=== PATIENT | male | born 1965 | race Caucasian/White ===

== ENCOUNTER → 2016-08-04 | Outpatient (CLI) | payer BC ==
[~2016-08-04] VITALS: Ht 162.6 cm; Wt 120.2 kg
[~2016-08-04] MED LIST: ALLO100T PO; LEVO25TA5 PO; LOSA100T36 PO; METF1000 PO; NIAC250T3 PO; NS 1,000 ML IV SCH; PRAV40TA2 PO; SERT-141 PO; VITA500C24 PO
--- NOTE | 2016-08-04 14:01 | ROOR ---
Patient Name: Glenn Marques Procedure Date: 08/04/2016 1:44 PM Date of : 1965 Age: 50 Room: [facility] Gender: Male Note Status: Finalized Procedure: Colonoscopy Indications: Screening for colorectal malignant neoplasm Providers: Hernan SERNA MD Referring MD: Naeem HUFFMAN NP Requesting Provider: Medicines: Monitored Anesthesia Care Complications: No immediate complications. Procedure: Pre-Anesthesia Assessment: - The heart rate, respiratory rate, oxygen saturations, blood pressure, adequacy of pulmonary ventilation, and response to care were monitored throughout the procedure. The Colonoscope was introduced through the anus and advanced to the cecum, identified by appendiceal orifice and ileocecal valve. The colonoscopy was performed without difficulty. The patient tolerated the procedure well. The quality of the bowel preparation was fair. Findings: The perianal and digital rectal examinations were normal. (EXAM: Complete, PREP: Suboptimal) The entire examined colon appeared normal on direct and retroflexion views. Impression: - Preparation of the colon was fair. - (EXAM: Complete, PREP: Suboptimal) - The entire examined colon is normal on direct and retroflexion views. - No specimens collected. Recommendation: - Repeat colonoscopy in 2 years because the bowel preparation was suboptimal. Hernan Serna MD Hernan SERNA MD 08/04/2016 2:00:47 PM This report has been signed electronically. Number of Addenda: 0 Note Initiated On: 08/04/2016 1:44 PM Estimated Blood Loss: Estimated blood loss: none.
[2016-08-04 14:30] VITALS: BP 170/96
== END | disposition home or self-care (01) ==
LOC: M OPP 10:43
PROVIDERS: ATTEND Internal Medicine Gastroenterology
DX: Z12.11 Encounter for screening for malignant neoplasm of colon (principal); I10 Essential (primary) hypertension; E78.5 Hyperlipidemia, unspecified; E11.9 Type 2 diabetes mellitus without complications; M10.9 Gout, unspecified; E03.9 Hypothyroidism, unspecified; R12 Heartburn; G47.30 Sleep apnea, unspecified; R06.83 Snoring; F17.290 Nicotine dependence, other tobacco product, uncomplicated; Z88.0 Allergy status to penicillin; Z79.84 Long term (current) use of oral hypoglycemic drugs; Z79.899 Other long term (current) drug therapy; Z80.1 Family history of malignant neoplasm of trachea, bronchus and lung
CPT/HCPCS: 99156; G0121

== ENCOUNTER → 2017-08-10 | Outpatient (REF) | payer OTHER ==
[2017-08-12 08:07] LABS: LDL DIRECT 47 mg/dL (0-99)
== END ==
LOC: M LAB REF 17:17
DX: E78.1 Pure hyperglyceridemia (principal)

== ENCOUNTER → 2018-12-23 | Outpatient (REF) | payer OTHER, SELFPAY ==
[~2018-12-23] MED LIST changes: -LOSA100T36 PO; +LOSA100T50 PO; -METF1000 PO; +METF10004 PO; -NS 1,000 ML IV SCH
[2018-12-24 08:07] LABS: LDL DIRECT 83 mg/dL (0-99)
== END ==
LOC: M LAB REF 12:56
PROVIDERS: ATTEND Nurse Practitioner Adult Health
DX: E78.1 Pure hyperglyceridemia (principal)